=== PATIENT | female | born 2000 | race Caucasian/White ===

== ENCOUNTER 2024-05-20 16:16 | Emergency (ER) | payer SELFPAY ==
[2024-05-20 16:17] VITALS: BP 146/90; PULSE 106; RESP 20; TEMP 35.7; O2SAT 100; BMI 27.5
[2024-05-20 17:13] LABS: Absolute Lymphocyte Count 1.88 X10^3/uL (0.83-4.51); Absolute Neutrophil Count 7.4 X10^3/uL (2.0-7.7); Basophil# 0.05 X10^3/uL; Basophil% 0.5 % (0-1); Eosinophil# 0.06 X10^3/uL; Eosinophils% 0.6 % (0-5); Hematocrit 43.8 % (37-47); Hemoglobin 14.1 g/dL (12.0-15.0); Lymphocyte # 1.88 X10^3/ul (0.83-4.51); Lymphocyte % 18.8 % (19-41); Mean Corp Hgb Conc 32.2 g/dL (32-36); Mean Corpuscular Hgb 27.5 pg (27.0-32.0); Mean Corpuscular Volume 85.4 fL (81-99); Mean Platelet Vol. 9.9 fl (6.2-12.0); Monocyte# 0.58 X10^3/uL; Monocyte% 5.8 % (0-10); NRBC Flagged by Analyzer 0 % (0-5); Neutrophil # 7.41 X10^3/uL (2.7-7.7); Neutrophil % 74.1 % (47-70); Platelet Count 264 K/mm3 (150-450); RBC Distribution Width CV 12.3 % (11.6-14.6); RBC Distribution Width SD 38.3 fl (35.1-43.9); Red Blood Count 5.13 M/mm3 (4.2-5.4)
[2024-05-20 17:15] LABS: Amphetamine Urine NEGATIVE (<1000 ng/mL); Barbiturate Urine VISTA NEGATIVE (< 200 ng/mL); Benzodiazepine Urine VISTA NEGATIVE (< 200 ng/mL); Cocaine Urine VISTA NEGATIVE (< 300 ng/mL); Ecstacy Urine VISTA POSITIVE (< 500 ng/mL); Methadone Urine VISTA NEGATIVE (< 300 ng/mL); PCP Urine VISTA NEGATIVE (< 25 ng/mL); THC Urine VISTA NEGATIVE (< 50 ng/mL); Vista UDS pH Range 6
[2024-05-20 17:17] VITALS: BP 136/77; PULSE 74; RESP 16; O2SAT 97
[2024-05-20 17:42] LABS: Internal QC Validated? YES +Cl - CLEAR BKGD; Pregnancy, Serum, hCG Quali. NEGATIVE Negative
[2024-05-20 17:54] LABS: Anion Gap 8 (5-15); BUN 7 mg/dL (7-18); BUN/Creat Ratio 8.5 RATIO (10-20); Calcium,Total 9.5 mg/dL (8.5-10.1); Chloride 104 mmol/L (98-107); Creatinine, Serum 0.83 mg/dL (0.55-1.02); EST Glomerular Filtration Rate 91 mL/min (>60); Est Glom Filt Rate - Afr Amer 110 mL/min (>60); Estimated Creatinine Clearance 96.31 ml/min; Glucose 113 mg/dL (74-106); Potassium 3.5 mmol/L (3.5-5.1); Sodium Level 135 mmol/L (136-145)
--- NOTE | 2024-05-20 18:04 | EX.ED.VIS.PS ---
HPI HPI - Psych History of Present Illness Chief Complaint: Suicidal Informant: patient Narrative Narrative: Patient is a 23-year-old female with history of depression presenting with worsening depression and thoughts of suicidal ideation. Patient states she has a history of suicidal ideations but it has been worse over the past week. She denies any recent medication changes. She states she follows with Gail at [facility]. She is currently on Celexa, Wellbutrin and trazodone. She states has been compliant with her medications but does note that a couple weeks ago she missed her meds for couple days because her luggage was delayed after she was in [facility]. She states that she was going to be alone tonight so plan was to take the car and crashed her to kill herself. She denies any new triggers. She denies any prior attempt of suicide. She denies any HI. Denies any auditory visual hallucinations. Notes that last winter she was put on which she thinks to be Lexapro for what sounds like seasonal affective disorder and she found it helpful. As she called [facility] today and they could not see her and recommend she come to the emergency room. She came today and sought evaluation today after her friend encouraged her. She currently lives with voodoo friends. Denies any physical complaints at this time. States he sometimes gets headache and nausea but that is not abnormal for her. [facility]SH [facility] Home Medications ?Medication ?Instructions ?Recorded ?Last Taken ?Type bupropion HCl 150 mg 24 hr tablet, 150 mg PO QHS 05/20/24 Unknown History extended release (Wellbutrin XL) citalopram 10 mg tablet (Celexa) 30 mg PO QHS 05/20/24 Unknown History trazodone 50 mg tablet 50 mg PO QHS 05/20/24 Unknown History Allergy/AdvReac Type Severity Reaction Status Date / Time No Known Allergies Allergy Verified 05/20/24 16:20 Social History Smoking Status: Never smoker ROS ROS ED Constitutional Constitutional ED: Denies chills or fever(s) Respiratory/Chest Respiratory/Chest: Denies cough Gastrointestinal Gastrointestinal: Reports nausea; Denies abdominal pain Musculoskeletal Musculoskeletal: Denies arthralgias or myalgias Neurologic Neurologic: Reports headache(s) Psychiatric Psychiatric: Reports depression, suicidal ideation and suicidal thoughts Hematologic/Lymphatic Hematologic/Lymphatic: Denies easy bleeding or easy bruising EXAM Physical Exam Const Vital Signs: 05/20/24 16:17 05/20/24 17:17 Temperature 96.2 F L Temperature Source Temporal Pulse Rate 106 H 74 Respiratory Rate 20 H 16 Blood Pressure 146/90 H 136/77 H Blood Pressure Mean 108 96 Pulse Ox 100 97 Oxygen Delivery Method Room Air Positive well nourished and well developed General Appearance ED: well developed and NAD HEENT Reports moist mucous membranes Eyes EOMs intact bilaterally Neck no lymphadenopathy and supple Resp normal respiratory effort and clear to auscultation bilaterally Cardio Rate: regular rate Rhythm: regular rhythm GI non-tender and non-distended Extremity normal to inspection General Extremety ED: Negative for edema General Extremity: Negative for edema Neuro oriented x3 Sensorium / Orientation: alert Motor Exam: muscle tone normal throughout Psych mental status grossly normal, thought process normal, cooperative, affect normal, speech normal, denies hallucinations and denies homicidal ideation Appearance: grossly normal and well kempt Attitude: calm Speech: normal speech Mood & Affect: depressed; Negative for sad or tearful Thought Process: normal thought process Thought Content: suicidality, No homicidality, No delusion(s) and No hallucination(s) Attention / Concentration: attention grossly intact and concentration grossly intact Memory / Cognition: memory grossly intact Insight: fair Judgement: fair Skin Lesions: no lesions Rashes: no rashes MDM MDM MDM Narrative Medical decision making narrative: Patient is evaluated for suicidal ideations with plan. She has no prior attempt as of a history of depression. Never been hospitalized. Will be medically cleared and referred to counseling center for further psychiatric evaluation. Patient medically cleared. Evaluated crisis. They feel that she would benefit from inpatient psychiatric care. I am in agreement. [place] slip was filed. Patient signed out to oncoming physician pending final placement Lab Data Labs: Laboratory Results - last 24 hr 05/20/24 05/20/24 16:49 17:00 WBC 10.0 RBC 5.13 Hgb 14.1 Hct 43.8 MCV 85.4 MCH 27.5 MCHC 32.2 RDW Std Deviation 38.3 RDW Coeff of Jose Maria 12.3 Plt Count 264 MPV 9.9 Immature Gran % (Auto) 0.200 Neut % (Auto) 74.1 H Lymph % (Auto) 18.8 L [place] % (Auto) 5.8 Eos % (Auto) 0.6 Baso % (Auto) 0.5 Absolute Neuts (auto) 7.4 Absolute Lymphs (auto) 1.88 Nucleated RBC % 0 Sodium 135 L Potassium 3.5 Chloride 104 Carbon Dioxide 23.0 Anion Gap 8 BUN 7 Creatinine 0.83 Estim Creat Clear Calc 96.31 Est GFR (MDRD) Af Amer 110 Est GFR (MDRD) Non-Af 91 BUN/Creatinine Ratio 8.5 L Glucose 113 H Calcium 9.5 Serum , Qual NEGATIVE Urine Opiates Screen NEGATIVE Urine Methadone Screen NEGATIVE Ur Barbiturates Screen NEGATIVE Ur Phencyclidine Scrn NEGATIVE Ur Amphetamines Screen NEGATIVE MDMA (Ecstasy) Screen POSITIVE H U Benzodiazepines Scrn NEGATIVE Urine Cocaine Screen NEGATIVE U Cannabinoids Screen NEGATIVE Ur Drug Screen Comment Ethyl Alcohol 4.0 Discharge Plan Triage Chief Complaint: Suicidal ED Provider: Odette Padron Dx/Rx/DC Orders Clinical Impression: Depression with suicidal ideation Prescriptions: No Action bupropion HCl [Wellbutrin XL] 150 mg tablet extended release 24 hr 150 mg PO QHS citalopram [Celexa] 10 mg tablet 30 mg PO QHS trazodone 50 mg tablet 50 mg PO QHS Primary Care Provider: Doni Gaytan Referrals: Doni Gaytan, PAKrunalC [Primary Care Provider] - Print Language: Turkish
--- NOTE | 2024-05-20 20:08 | CM.ED ---
Social Work Patient evaluated by crisis due to self pay status. Waiting inpatient psychiatric placement. Ella Feliz, SAWMILL OR TIMBER YARD WORKER, GROUND SUPPORT EQUIPMENT ASSEMBLER
[2024-05-20] MEDS: buPROPion (XL) 150 MG TABLET.XL PO (21:32)
[2024-05-20] MEDS: Citalopram 10 MG Tablet 30 MG PO (21:32)
[2024-05-20] MEDS: traZODone 50 MG Tablet PO (21:33)
--- NOTE | 2024-05-20 23:21 | ED.RN ---
Received call from [facility], spoke to Steven. He called to update us that they are working on a single case agreement for pt to be placed.
--- NOTE | 2024-05-21 00:07 | ED.RN ---
Steven from crisis called to request us to fax photo id to them to show as proof of [facility] residence. It was received @ 0000, pt has now been referred to [facility].
[2024-05-21 01:31] VITALS: BP 133/83; PULSE 83; RESP 32; O2SAT 100
--- NOTE | 2024-05-21 08:39 | CM.ED ---
Social work Called Corrie at Crisis to see if this SW could be of any assistance. Corrie stated patient is currently still under review at [facility] and Corrie has already called [facility] twice this morning. Corrie stated intent to call [facility] back around 0900 and will keep this SW updated. SW to follow and help as needed. Plan: Crisis attempting placement at [facility] Mar Ortega, FLOOR DIRECTOR, CHASER HELPER
[2024-05-21 09:00] VITALS: BP 128/81; PULSE 77; RESP 16; O2SAT 98
[2024-05-21] MEDS: Acetaminophen 500 MG Tablet 1000 MG PO (15:10)
--- NOTE | 2024-05-21 16:20 | ED.RN ---
ACCEPTED AT [facility] @ 1244 JUST WAITING ON HER BED TO BE CLEAN
--- NOTE | 2024-05-21 16:24 | ED.RN ---
This RN attempted to call report, they stated they were medicating a patient and would call back.
--- NOTE | 2024-05-21 16:29 | CM.ED ---
Social work This SW called [facility] ([phone]) and spoke with Rahul at 1540. Rahul stated [facility] was able to secure a single case agreement through [facility] with [facility]. This SW clarified that [facility] was not being pursued as previous notes suggested and Rahul stated [facility] has been working on [facility]. Rahul stated that if [facility] fell through, [facility] would attempt [facility]. This SW stated ED Stonemason Supervisor Cathy had faxed requested papers to [facility] for voluntary patient placement a few hours prior and no return contact had been received. At 1555, Steven from [facility] called this SW and stated just speaking with [facility] [place] Cathy who agreed to tried resending requested papers via fax. Steven stated calling this SW or Cathy when an answer was received. Steven stated not needing this SW help with anything at this time. This SW spoke with Cathy who stated page two of the document had not been faxed successfully; second attempt succesful per Cathy. Mar Ortega, EVENT DESIGNER, SIGN SHOP SUPERVISOR
[2024-05-21 17:00] VITALS: BP 120/81; PULSE 82; RESP 16; O2SAT 97
[2024-05-21 17:26] VITALS: BP 120/81; PULSE 82; RESP 17; TEMP 36.7; O2SAT 97
--- NOTE | 2024-05-21 17:32 | ED.RN ---
Report called to Tanner DIAZ at [facility].
== END 2024-05-21 21:43 ==
LOC: ED 17:26
PROVIDERS: Emergency Provider Emergency Medicine; PCP Physician Assistant; Referring Provider Emergency Medicine; Visit Provider Emergency Medicine
DX: F32.A Depression, unspecified (principal); R45.851 Suicidal ideations; Z79.899 Other long term (current) drug therapy
CPT/HCPCS: 36415; 80048; 80307; 82077; 84703; 85025; 99285